=== PATIENT | female | born 1985 | race Caucasian/White ===

== ENCOUNTER 2020-07-01 18:41 | Emergency (ER) | payer OTHER, SELFPAY ==
[2020-07-01 18:59] VITALS: BP 144/108; PULSE 104; RESP 20; TEMP 36.4; O2SAT 100
--- NOTE | 2020-07-01 19:20 | ED.ANXIETY ---
HPI - Anxiety General Chief Complaint: Anxiety Stated Complaint: light headed/anxiety Time Seen by Provider: 07/01/20 19:09 Source: patient and RN notes reviewed Mode of arrival: ambulatory Limitations: no limitations History of Present Illness HPI narrative: Patient presents today complaining of increased anxiety/panic attack x4 days. 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 She missed a deadline and has been feeling exceptionally anxious since then with symtpoms to include numbness and tingling in the arms and legs as well as the tongue, labile emotions/crying a lot. Symptoms have been pretty constant since onset and are not continuing to worsen. Denies chest pain, shortness of breath, abdominal pain, nausea or vomiting, diarrhea. Denies HI or SI. Denies hallucinations or delusions. History of anxiety and panic attacks. She currently takes sertraline for her depression. She has made an appointment with a new PCP, but cannot get in for 1 month. MD complaint: anxiety Related Data Home Medications Medication Instructions Recorded Confirmed lisinopril 10 mg PO BID 07/01/20 07/01/20 sertraline 50 mg PO DAILY 07/01/20 07/01/20 Allergies Allergy/AdvReac Type Severity Reaction Status Date / Time No Known Allergies Allergy Verified 07/01/20 19:09 Review of Systems Review of Systems: Narrative: CONSTITUTIONAL: Denies body aches, fever, chills, or sweats. EYES: Denies visual changes, redness, or discharge. ENT: Denies rhinorrhea, congestion, sore throat, or otalgia. CARDIOVASCULAR: Denies chest pain, palpitations, or edema. RESPIRATORY: Denies cough or dyspnea. GASTROINTESTINAL: Denies abdominal pain, nausea, vomiting, or diarrhea. GENITOURINARY: Denies dysuria or hematuria. SKIN: Denies rash, itching, or wounds. MUSCULOSKELETAL: Denies back pain, joint pain, or myalgia. NEUROLOGIC: Denies headache, numbness, or weakness. + Tingling in the face and extremities PSYCH: + Anxiety, emotional PMFSH Past Medical History Medical History (Updated 07/01/20 @ 19:25 by Pau White, MATHEMATICIAN, BC) Anxiety Depression Hypertension Panic attacks Social History Social History Gender identity (if verbalized by the patient): Female Comments At time of signature, I have reviewed and agree with nursing past medical, surgical, social and family history unless otherwise noted. Please see nursing chart for further information. There is no relevant family history pertinent to the presenting complaint Exam Narrative: Exam Narrative: GENERAL: Well-appearing, well-nourished, and in no acute distress. HEAD: Normocephalic, atraumatic. EYES: EOMI. No redness or drainage. Conjunctivae normal. ENT: Mucous membranes pink and moist. Nares clear. No rhinorrhea. TMs normal bilaterally. Throat normal. Uvula midline. NECK: Normal AROM. Supple. No lymphadenopathy. CHEST: No respiratory distress. Clear to auscultation. HEART: Regular rate and rhythm. No murmur appreciated. Normal peripheral pulses. MUSCULOSKELETAL: No bony tenderness. EXTREMITIES: Normal range of motion. No edema. SKIN: Warm, dry, no rash. Capillary refill normal. Normal skin turgor. NEURO: No focal deficits. Alert and oriented x3. Gait steady. PSYCH: +anxious Course Vital Signs Vital signs: Vital Signs Temperature 97.6 F 07/01/20 18:59 Pulse Rate 104 H 07/01/20 18:59 Respiratory Rate 20 07/01/20 18:59 Blood Pressure 144/108 H 07/01/20 18:59 Pulse Oximetry 100 07/01/20 18:59 Temperature 97.6 F 07/01/20 18:59 Pulse Rate 104 H 07/01/20 18:59 Respiratory Rate 20 07/01/20 18:59 Blood Pressure 144/108 H 07/01/20 18:59 Pulse Oximetry 100 07/01/20 18:59 Reviewed. Pt has been instructed to follow up with her PCP regarding her elevated blood pressure today. MDM - Anxiety Differential Diagnosis Differential diagnosis: Likely hyperventilation, panic disorder and acute anxiety Critical Care Time Critical Care Time
== END 2020-07-01 19:28 | disposition home or self-care (01) ==
PROVIDERS: Emergency Provider Nurse Practitioner
DX: F41.9 Anxiety disorder, unspecified (principal); F32.9 Major depressive disorder, single episode, unspecified; I10 Essential (primary) hypertension
CPT/HCPCS: 99203; G0463